=== PATIENT | female | born 1995 | race African-American/Black ===

== ENCOUNTER 2018-04-17 14:39 | Emergency (ER) | payer OTHER ==
[2018-04-17 14:47] VITALS: BP 127/76; PULSE 115; TEMP 102.4; BMI 37.8
[2018-04-17] MEDS ORDERED: ACETAMINOPHEN 500 MG TABLET (FP) PO ONE (14:47)
[2018-04-17] MEDS ORDERED: ACETAMINOPHEN 500 MG TABLET (FP) ONE (14:49)
--- NOTE | 2018-04-17 16:34 | PDOC ---
History of Present Illness - General Chief Complaint: Eye Problem Stated Complaint: HEADACHE Time Seen by Provider: 04/17/18 15:32 Past History - Past Medical History Allergies/Adverse Reactions: Allergies Allergy/AdvReac Type Severity Reaction Status Date / Time No Known Allergies Allergy Verified 04/17/18 14:42 Home Medications: Ambulatory Orders Amox-Tr/K Cl [Augmentin - 875Mg Tablet] 1 tab PO BID #20 tablet 04/17/18 Budesonide [Rhinocort Allergy] 1 spray NS ONCE #1 spray.pump 04/17/18 COPD: No - Immunization History Immunization Up to Date: Yes - Suicide/Smoking/Psychosocial Hx Smoking History: Never smoked Hx Alcohol Use: No Drug/Substance Use Hx: No *Physical Exam - Vital Signs Last Vital Signs Temp Pulse Resp BP Pulse Ox 102.4 F H 115 H 18 127/76 99 04/17/18 14:42 04/17/18 14:42 04/17/18 14:42 04/17/18 14:42 04/17/18 14:42 Moderate Sedation - Procedure Monitoring Vital Signs: Procedure Monitoring Vital Signs Temperature 102.4 F H 04/17/18 14:42 Pulse Rate 115 H 04/17/18 14:42 Respiratory Rate 18 04/17/18 14:42 Blood Pressure 127/76 04/17/18 14:42 O2 Sat by Pulse Oximetry (%) 99 04/17/18 14:42 ED Treatment Course - Medications Given in the ED: ED Medications Discontinued Medications Generic Name Dose Route Start Last Admin Trade Name Ariane PRN Reason Stop Dose Admin Acetaminophen 1,000 mg 04/17/18 14:47 04/17/18 14:51 Tylenol - PO 04/17/18 14:48 1,000 mg NOW ONE Administration *DC/Admit/Observation/Transfer Diagnosis at time of Disposition: Sinusitis - Discharge Dispostion Disposition: HOME Condition at time of disposition: Stable Decision to Admit order: No - Referrals Referrals: Leonard Morales MD [Staff Physician] - - Patient Instructions Printed Discharge Instructions: DI for Sinusitis, Sinusitis Additional Instructions: Your CAT scan was normal. I believe he had a sinus infection which is causing the pressure behind her eyes. Please take the antibiotics as directed and follow -up with ear nose and throat moist to 2 days for further evaluation and treatment options. Return to the emergency room should symptoms worsen or go unresolved also prescribed fewer steroid nasal spray which helped her symptoms. - Post Discharge Activity
== END 2018-04-17 18:38 | disposition home or self-care (01) ==
LOC: JERFT 14:39
DX: J01.90 Acute sinusitis, unspecified (principal)
CPT/HCPCS: 70450-TC; 84703; 87070; 87804; 87880; 99281-25

== ENCOUNTER 2021-08-27 16:26 | Emergency (ER) | payer OTHER ==
[2021-08-27 16:47] VITALS: BP 99/64; PULSE 94; TEMP 97.9; BMI 20.5
[2021-08-27] MEDS ORDERED: SODIUM CHLORIDE 0.9% 500 ML INFUS.BAG IV ONE (17:31)
[2021-08-27 18:42] LABS: BASO % 0.6 % (0-2.0); EOS % 0.8 % (0-4.5); HEMATOCRIT 35.5 % (32.4-45.2); HEMOGLOBIN 11.9 GM/dL (10.7-15.3); LYMPH % 22.4 % (8-40); MCH 29.5 pg (25.7-33.7); MCHC 33.5 g/dl (32.0-36.0); MEAN CELL VOLUME 87.9 fl (80-96); MEAN PLT VOLUME 8.6 fl (7.5-11.1); MONO % 7.3 % (3.8-10.2); NEUT % 68.9 % (42.8-82.8); PLATELET COUNT 300 10^3/uL (134-434); RBC 4.03 M/mm3 (3.60-5.2); WHITE BLOOD COUNT 9.3 K/mm3 (4.0-10.0)
[2021-08-27 19:00] LABS: CALCIUM 9.5 mg/dL (8.5-10.1)
[2021-08-27 19:01] LABS: ALBUMIN 4.2 g/dl (3.4-5.0); BLOOD UREA NITROGEN 8.8 mg/dL (7-18)
[2021-08-27 19:04] LABS: CREATININE 0.7 mg/dL (0.55-1.3)
[2021-08-27 19:05] LABS: BILIRUBIN,TOTAL 0.4 mg/dL (0.2-1); TOT PROT 7.3 g/dl (6.4-8.2)
[2021-08-27 19:20] LABS: EPI CELLS >36 /uL (0-25.1); HYALINE CASTS 124 /uL (0-3.1); URINE APPEARANCE TURBID; URINE BILIRUBIN 1+ (NEGATIVE); URINE COLOR RED; URINE GLUCOSE (UA) NEGATIVE (NEGATIVE); URINE KETONE NEGATIVE (NEGATIVE); URINE LEUK ESTERASE 2+ (NEGATIVE); URINE NITRITE POSITIVE (NEGATIVE); URINE PROTEIN 2+ (NEGATIVE); URINE RBC 36602 /uL (0-23.9); URINE UROBILINOGEN 0.2 mg/dL (0.2-1.0); URINE WBC 279 /uL (0-25.8)
== END 2021-08-27 23:24 | disposition home or self-care (01) ==
LOC: JER 16:26
DX: R11.2 Nausea with vomiting, unspecified (principal)
CPT/HCPCS: 36415; 74177-TC; 80053; 81003; 84703; 85025; 99285-25; Q9967